=== PATIENT | male | born 1995 | race Caucasian/White ===

== ENCOUNTER 2018-04-08 10:57 | Emergency (ER) | payer MEDICAID ==
[~2018-04-08] VITALS: Ht 180.3 cm; Wt 60.6 kg
[2018-04-08] MEDS ORDERED: IBUPROFEN 600MG TABLET PO ONE (11:15)
[2018-04-08 11:25] VITALS: BP 121/84
== END 2018-04-08 12:52 | disposition home or self-care (01) ==
LOC: ER 11:22
DX: S90.111A Contusion of right great toe without damage to nail, initial encounter (principal); W22.03XA Walked into furniture, initial encounter; Y93.89 Activity, other specified; Y92.89 Other specified places as the place of occurrence of the external cause; Y99.8 Other external cause status
CPT/HCPCS: 73660; 99284